=== PATIENT | female | born 1965 | race Caucasian/White ===

== ENCOUNTER 2020-06-29 16:39 | Emergency (ER) | payer MEDICAID, SELFPAY ==
[2020-06-29 16:40] VITALS: BP 126/80; PULSE 108; RESP 18; TEMP 36.6; O2SAT 98; BMI 29.4
--- NOTE | 2020-06-29 17:05 | ED.VISSUMM ---
- ER Visit Summary Date of Service: 06/29/20 Chief Complaint: Left ankle pain and swelling after being thrown off of a lawn tractor History of Present Illness: The patient is a 55 F history of CHF and COPD. Patient states she was cutting her grass she went to lift up a branch of a tree she was going under the tractor kicked forward and she fell off of that injuring her left ankle. No prior history of a broken ankle or surgery. Denies any other injuries. No LOC. She is on no blood thinners. Denies any head or neck pain. Physical Examination: Middle-aged female no acute distress vital signs stable afebrile. HEENT exam unremarkable atraumatic. Neck nontender. Lungs clear to auscultation. Heart regular rhythm no murmur. Chest were nontender. Abdomen soft nontender. Pelvic girdle intact. 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 Pelvic girdle intact. Hips nontender. Right lower extremity nontender normal range of motion. Normal dorsi plantarflexion. Left hip knee nontender normal range of motion. Left ankle tender swollen primarily tender medially. But also swollen and mildly tender laterally. DP pulse intact. Is able to do some dorsi plantarflexion. Achilles tendon is intact. Foot nontender. No bony deformity. Able to wiggle her toes. Normal cap refill. Skin intact. Neurologically she is awake and alert with no focal deficits. Test Results: Left ankle x-ray 3 views read by myself nondisplaced medial malleolus fracture. I went over the films with the patient. Patient was placed in a well-padded short leg posterior splint. Was instructed not to walk on it. Keep it clean and dry. Emergency Department Course and Treatment: [place] for pain. X-ray to evaluate the ankle for fracture versus sprain. Treatment Plan: Crutches. Nonweightbearing. [place] for pain 14 no refill. Call and follow-up with [facility] Dr. Yaakov Thomson. Disposition: discharge Impression: Fell off of a lawn tractor Acute left ankle medial malleolus fracture Acute short leg posterior splint by ER This note was generated with [employer] dictation software. It may contain incorrect words, spelling, and punctuation that were not noted in review of the chart prior to signing ED Disposition - Plan for ED Patient: Referrals: [facility] Doctor,Out of [NON-STAFF] -
--- NOTE | 2020-06-29 17:25 | RAD_ITS ---
STUDY: X-RAY - LEFT ANKLE REASON FOR EXAM: Female, 55 years old. 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 COMPARISON: None. FINDINGS: Acute distal tibia fracture extending to the medial malleolus. Normal distal fibula . Normal tibiotalar articulation and ankle mortise. Normal visualized talus and calcaneus. The visualized subtalar, talonavicular, calcaneocuboid and tarsal articulations are normal. The soft tissue structures are unremarkable. RAD/Ankle min 3 Views IMPRESSION: Distal tibia fracture. Electronically Signed: Richardson Ying MD at 17:59 EDT , Service support ,
[2020-06-29] MEDS: HYDROcodone Bitartrate/Apap 5/325 Tablet PO (17:48)
--- NOTE | 2020-06-29 18:10 | ED.DEP ---
ED Disposition - Plan for ED Patient: Disposition: Home or Assisted Living Instructions: ED Ankle Fracture Prescriptions: Hydrocodone/Acetaminophen [[place] 7.5-325 Tablet] 1 ea PO Q6H PRN PRN 5 Days #14 tab PRN Reason: Pain Or Fever Prescription Printed Referrals: Yaakov Thomson MD [STAFF PHYSICIAN] - As soon as possible Additional Instructions: Ice and elevate your left ankle to decrease pain and swelling. Keep the splint dry and clean. No weightbearing. [place] for pain and swelling. Motrin for pain and swelling. Call and follow-up with Dr. Yaakov Thomson of [facility] to be reevaluated for your broken left ankle.
[2020-06-29 18:28] VITALS: BP 139/62; PULSE 58; RESP 17; O2SAT 98
== END 2020-06-29 18:33 | disposition home or self-care (01) ==
PROVIDERS: Emergency Provider Emergency Medicine
DX: S82.52XA Displaced fracture of medial malleolus of left tibia, initial encounter for closed fracture (principal); V84.5XXA Driver of special agricultural vehicle injured in nontraffic accident, initial encounter; Y93.H9 Activity, other involving exterior property and land maintenance, building and construction; Y92.007 Garden or yard of unspecified non-institutional (private) residence as the place of occurrence of the external cause; Y99.9 Unspecified external cause status; I50.9 Heart failure, unspecified; J44.9 Chronic obstructive pulmonary disease, unspecified
CPT/HCPCS: 29515; 73610; 99283